=== PATIENT | male | born 1940 | race Caucasian/White ===

== ENCOUNTER 2018-11-29 14:33 | Emergency (ER) | payer MEDICARE ==
[~2018-11-29] VITALS: Ht 172.7 cm; Wt 102.1 kg
[2018-11-29] MEDS ORDERED: ROBAXIN-750750 MG PO (15:32)
[2018-11-29] MEDS ORDERED: ULTRAM50 MG PO (15:35)
== END 2018-11-29 15:50 | disposition home or self-care (01) ==
LOC: FSED 14:33
DX: S39.012A Strain of muscle, fascia and tendon of lower back, initial encounter (principal); M54.9 Dorsalgia, unspecified; I10 Essential (primary) hypertension; E78.5 Hyperlipidemia, unspecified; N40.0 Benign prostatic hyperplasia without lower urinary tract symptoms; Z86.73 Personal history of transient ischemic attack (TIA), and cerebral infarction without residual deficits; W01.0XXA Fall on same level from slipping, tripping and stumbling without subsequent striking against object, initial encounter
CPT/HCPCS: 99283